=== PATIENT | female | born 1985 | race Caucasian/White ===

== ENCOUNTER 2020-12-06 13:25 | Emergency (ER) | payer OTHER, SELFPAY ==
--- NOTE | ~2020-12-06 | XR_ITS ---
EXAMINATION: XR shoulder RT min 2V DATE: 12/06/2020 14:03 INDICATION: Right shoulder injury. TECHNIQUE: 4 views of right shoulder were obtained. COMPARISON: None. FINDINGS: Bone alignment is normal. No fracture. Glenohumeral joint is normal. There is mild acromioc lavicular joint osteoarthritis. There is mild scarring at right lung apex. IMPRESSION: 1. Mild acromioclavicular joint osteoarthritis. Reviewed, dictated and finalized at location A.
--- NOTE | ~2020-12-06 | CT_ITS ---
EXAMINATION: CT brain wo con INDICATION: Head injury COMPARISON: None TECHNIQUE: Standard unenhanced head CT. The dose-length product (DLP) was 605.33 mGy-cm. The mA was a djusted according to patient size. Iterative reconstruction technique was employed. FINDINGS: There is no intracranial hemorrhage, acute infarction, or abnormal mass lesion. The ventric les are normal. There is no abnormal mass effect or midline shift. The forbes-white matter differentiat ion is normal. The basal cisterns are patent. The orbits are normal. The paranasal sinuses, mastoids and calvarium are normal. IMPRESSION: 1. No acute intracranial abnormality. Reviewed, dictated and finalized at location A.
[2020-12-06 13:30] VITALS: BP 125/99; PULSE 117; RESP 18; TEMP 36.9; O2SAT 100
[2020-12-06 17:08] VITALS: BP 121/66; PULSE 71; RESP 16; O2SAT 97
--- NOTE | 2020-12-06 17:11 | ED.GENADULT ---
HPI - General Adult General Chief complaint: Fall Stated complaint: fell down stairs, head, shoulder, collar bone pain Time Seen by Provider: 12/06/20 14:41 Source: patient Mode of arrival: ambulatory Limitations: no limitations History of Present Illness HPI narrative: Patient presents with chief complaint of hand pain, right shoulder pain and right clavicle pain that began last night after she fell down some steps. Patient denies loss of consciousness. She denies change in vision, hearing, nausea, vomiting, neurological deficits. Patient reports swelling and bruising to her head and shoulder. She reports tenderness to these areas. Patient denies any bleeding from her orifices. Patient denies any other injuries or symptoms. Related Data Allergies Allergy/AdvReac Type Severity Reaction Status Date / Time Penicillins AdvReac Rash Verified 12/06/20 14:53 Review of Systems Review of Systems: Narrative: CONSTITUTIONAL: Denies fever, chills, or sweats. EYES: Denies visual changes, redness, or discharge. ENT: Denies rhinorrhea, congestion, sore throat, or otalgia. CARDIOVASCULAR: Denies chest pain, palpitations, or edema. RESPIRATORY: Denies cough or dyspnea. GASTROINTESTINAL: Denies abdominal pain, nausea, vomiting, or diarrhea. GENITOURINARY: Denies dysuria or hematuria. SKIN: Denies rash or itching. MUSCULOSKELETAL: Reports right shoulder and clavicle pain denies back pain, joint pain, or myalgia. NEUROLOGIC: Reports headache, denies numbness, dizziness, or weakness. PSYCHIATRIC: Denies anxiety or depression. Exam Narrative: Exam Narrative: GENERAL: Well-appearing, well-nourished, and in no acute distress. HEAD: Swelling and tenderness to right side of head to posterior EYES: PERRLA and EOMI. ENT: Nares clear, no rhinorrhea or epistaxis. Mucous membranes moist. Oropharynx without tonsillar hypertrophy exudate or other lesions. Bilateral TMs pearly forbes nonbulging. No hemotympanum NECK: Supple. No adenopathy or masses. Range of motion intact CHEST: Clear to auscultation. No respiratory distress. No wheezes rales or rhonchi HEART: Regular rate and rhythm. No murmur heard. Normal peripheral pulses. ABDOMEN: Soft, nontender, nondistended, normal active bowel sounds. EXTREMITIES: Tenderness with palpation of right shoulder and clavicle diffusely. There is ecchymosis noted. Normal range of motion. No edema. SKIN: Warm, dry, no rash. NEURO: No focal deficits. Alert and oriented x3. PSYCH: Normal mood and affect. Course Vital Signs Vital signs: Vital Signs Temperature 98.4 F 12/06/20 13:30 Pulse Rate 117 H 12/06/20 13:30 Respiratory Rate 18 12/06/20 13:30 Blood Pressure 125/99 H 12/06/20 13:30 Pulse Oximetry 100 12/06/20 13:30 Temperature 98.4 F 12/06/20 13:30 Pulse Rate 71 12/06/20 17:08 Respiratory Rate 16 12/06/20 17:08 Blood Pressure 121/66 12/06/20 17:08 Pulse Oximetry 97 12/06/20 17:08 Medical Decision Making MDM Narrative Medical decision making narrative: Patient informed about imaging results. Patient informed about head precautions and contusion instructions. Vital Signs Vital Signs: Vital Signs Temperature 98.4 F 12/06/20 13:30 Pulse Rate 117 H 12/06/20 13:30 Respiratory Rate 18 12/06/20 13:30 Blood Pressure 125/99 H 12/06/20 13:30 Pulse Oximetry 100 12/06/20 13:30 Temperature 98.4 F 12/06/20 13:30 Pulse Rate 71 12/06/20 17:08 Respiratory Rate 16 12/06/20 17:08 Blood Pressure 121/66 12/06/20 17:08 Pulse Oximetry 97 12/06/20 17:08 Imaging Data Radiologist's impression: ITS Impressions Shoulder X-Ray 12/06/20 14:05 IMPRESSION: 1. Mild acromioclavicular joint osteoarthritis. Head CT 12/06/20 16:08 IMPRESSION: 1. No acute intracranial abnormality. Discharge Plan Discharge Clinical Impression: Contusion of right shoulder Qualifiers: Encounter type: initial encounter Qualified Code(s): S40.011A - Co
== END 2020-12-06 17:10 | disposition home or self-care (01) ==
PROVIDERS: Emergency Provider Emergency Medicine
DX: S40.011A Contusion of right shoulder, initial encounter (principal); S09.90XA Unspecified injury of head, initial encounter; W10.9XXA Fall (on) (from) unspecified stairs and steps, initial encounter
CPT/HCPCS: 70450; 73030; 99284

== ENCOUNTER 2024-01-01 09:58 | Inpatient (IN) | payer OTHER, SELFPAY ==
[2024-01-01] VITALS (7 sets, daily range): BP systolic 135–151; BP diastolic 88–98; PULSE 51–92; RESP 16–18; TEMP 35.7–36.8; O2SAT 100; BMI 35.2
--- NOTE | 2024-01-01 | ECHO_ITS ---
Patient Info Name: Diane Huynh Age: 38 years : 1985 Gender: Female Ht: 66 in Wt: 220 lbs BSA: 2.20 m2 HR: 55 bpm Heart Rhythm: Sinus Rhythm Technical Quality: Good Exam Date: 01/01/2024 4:07 PM Exam Location: Echo Lab Patient Status: Outpatient Admit Date: 01/01/2024 Staff Ordering Physician: Bailey Herr MD Curatorial Assistant: Shania Chavarria RDCS Attending Provider: Milagros Collier MD Referring Physician: Nemesio HANSEN; Exam Type: CA echo doppler color flow Study Info Indications - new onset heart failure Complete two-dimensional, color flow and Doppler transthoracic echocardiogram is performed. Summary 1. Left ventricular chamber dimension is normal. 2. Left ventricular systolic function is normal, estimated at 60-65%. 3. The left ventricular diastolic function is grade III diastolic dysfunction. 4. Right ventricular systolic function is normal. 5. No significant valvular disease. Left Ventricle Left ventricular chamber dimension is normal. Left ventricular systolic function is normal, estimated at 60-65%. There is no increased left ventricular wall thickness. The left ventricular diastolic function is grade III diastolic dysfunction. Right Ventricle Right ventricular chamber dimension is normal. Right ventricular systolic function is normal. Left Atria Left atrial chamber dimension is normal. Right Atria Right atrial chamber dimension is normal. Atrial Septum Intact interatrial septum visualized by color flow imaging. Aortic Valve The aortic valve is not well visualized. There is no aortic valve stenosis. There is no aortic valve regurgitation. Pulmonic Valve The pulmonic valve is not well visualized. Mitral Valve There is trace mitral valve regurgitation. Tricuspid Valve There is trace tricuspid valve regurgitation. Pericardium/Pleural There is no pericardial effusion. Inferior Vena Cava Dilated inferior vena cava with >50% collapse upon inspiration consistent with elevated right atrial pressure, 8 mmHg. Aorta The aortic root size at the sinus of Valsalva is normal. Left Ventricular Outflow Tract Name Value Normal LVOT 2D LVOT Diameter 1.8 cm LVOT Doppler LVOT Peak Gradient 5 mmHg LVOT Mean Gradient 3 mmHg LVOT VTI 32 cm LVOT VTI/AV VTI Ratio 0.8 LVOT Stroke Volume 80 ml LVOT CO 3.8 l/min LVOT CI 1.7 l/min/m2 Pulmonic Valve Name Value Normal RVOT Doppler RVOT Peak Gradient 4 mmHg PV Doppler PV Peak Gradient 6 mmHg Mitral Valve Name Value Normal
--- NOTE | ~2024-01-01 | CT_ITS ---
EXAMINATION: CTA chest PE protocol DATE: 01/01/2024 13:59 INDICATION: Shortness of breath. TECHNIQUE: Computed tomography angiography (CTA) of the chest was performed with 100 mL Omnipaque-350 intravenous contrast timed to evaluate the pulmonary arteries. Coronal maximum intensity projection 3D-reconstructions were created by the technologist. Automated exposure control and iterative reconst ruction technique were employed. The dose-length product was 357.16 mGy-cm. COMPARISON: None. FINDINGS: There is mild scarring at the lung apices. There is smooth septal thickening in the inferio r lungs, consistent mild pulmonary edema. There are small pleural effusions. The heart size is normal . There is no pulmonary embolus. There is a small sliding hiatal hernia. There is mild thoracic spond ylosis. IMPRESSION: 1. No pulmonary embolus. 2. Mild pulmonary edema. 3. Small pleural effusions. Reviewed, dictated and finalized at location A.
--- NOTE | ~2024-01-01 | XR_ITS ---
Portable chest x-ray Comparison: 01/01/2024 Clinical History: Chest pain Findings: Lungs are clear, without focal consolidation or pleural effusion. Cardiomediastinal silho uette is stable. Bones and soft tissues are unremarkable. Impression: Normal chest. Reviewed, dictated and finalized at [facility]. Impression: Normal chest.
--- NOTE | ~2024-01-01 | XR_ITS ---
EXAMINATION: XR chest 2V DATE: 01/01/2024 12:05 INDICATION: Bilateral leg swelling. TECHNIQUE: Frontal and lateral views of the chest were obtained. COMPARISON: None. FINDINGS: There is mild scarring at the lung apices. No pleural effusion or pneumothorax. The heart s ize is normal. IMPRESSION: 1. Mild scarring at the lung apices. Reviewed, dictated and finalized at location A.
--- NOTE | ~2024-01-01 | US_ITS ---
EXAMINATION: US venous doppler [facility] DATE: 01/02/2024 09:15 INDICATION: Lower limb swelling. TECHNIQUE: Grayscale ultrasound images without and with compression and Doppler ultrasound images of the bilateral lower extremity veins were obtained. COMPARISON: None. FINDINGS: The visualized portions of right common femoral vein, profunda (deep) femoral vein, femoral vein, pop liteal vein, peroneal veins, posterior tibial veins, and greater saphenous vein outflow are patent. The visualized portions of left common femoral vein, profunda femoral vein, femoral vein, popliteal v ein, peroneal veins, posterior tibial veins, and greater saphenous vein outflow are patent. IMPRESSION: 1. No deep venous thrombosis. Reviewed, dictated and finalized at location A.
--- NOTE | 2024-01-01 11:40 | ED.EXTPRO ---
HPI - Extremity Problem General Chief complaint: Extremity Problem,Nontraumatic Stated complaint: bilateral lower extremity swelling Time Seen by Provider: 01/01/24 11:06 Source: patient Mode of arrival: ambulatory Limitations: no limitations History of Present Illness HPI Narrative: Patient presetns with bilateral lower extremity pain and swelling. No trauma. She first noticed this . Has not happened before. She also reports shortenss of breath and felt panicked earlier, feeling like her lungs were going to collapse. She initially thought it was a panick attack but has not had the other physical signs before. PCP Niall Bowles [employer] Related Data Home Medications Medication Instructions Recorded Confirmed ergocalciferol (vitamin D2) 1,250 1,250 mcg PO WEEKLY 01/01/24 01/01/24 mcg (50,000 unit) capsule ibuprofen 600 mg tablet 600 mg PO BID 01/01/24 01/01/24 omeprazole 40 mg capsule,delayed 40 mg PO DAILY 01/01/24 01/01/24 release Allergies Allergy/AdvReac Type Severity Reaction Status Date / Time Penicillins AdvReac Rash Verified 01/01/24 17:46 ON LICENSE OF [facility] Past Medical History Medical History Obstructive sleep apnea Surgical History Surgical History History of tonsillectomy Family History Family History Mother CHF (congestive heart failure) Hypothyroidism Renal failure Sibling CHF (congestive heart failure) Father Diabetes mellitus Social History Social History Social History: Surrogate medical decision maker: Leo Huynh, spouse. Code status: Full code. Smoking packs per day: 0.15 Smoking cigarettes per day: 3.0 Years smoked: 6 Smoking pack-years: 0.90 Smoking status: Former smoker Tobacco type: cigarettes and e-cigarettes/vaping Smoking end date: 09/12/21 Alcohol intake: current Drinks per week: 2 Substance use: never Do You Feel Safe in your Home?: Yes Lack of Transportation: No Lack of Food: Never True Current Housing: I Have Housing Concerned About Future Housing: Decline to Answer Difficulty Paying Gas/Electric Bills: Decline to Answer Difficulty Paying for Meds: Decline to Answer Currently Unemployed: Decline to Answer Education: High School Diploma/GED Difficulty w/ Childcare or Family Care: No Additional living arrangements comments: Lives with and son and daughter in [place]. Additional occupation/education comments: Homemaker. Spiritual care concerns: No Exam Narrative: GENERAL: Well-appearing, well-nourished, and in no acute distress. HEAD: Normocephalic, atraumatic. EYES: Non injected, non icteric ENT: Nares clear, no rhinorrhea or epistaxis. NECK: Supple. CHEST: Speaking in full sentences. No respiratory distress. HEART: Regular rate and rhythm. . ABDOMEN: Soft, nondistended. EXTREMITIES: Normal range of motion. 2+ pitting pedal edema. 1+ at tibia bilaterally. SKIN: Warm, dry, no rash. NEURO: No focal deficits. Alert and oriented x3. PSYCH: Intermittently tearful/anxious but calms appropriately. Course Vital Signs Vital signs: Vital Signs Temperature 97.6 F 01/01/24 10:21 Pulse Rate 92 01/01/24 10:21 Respiratory Rate 16 01/01/24 10:21 Blood Pressure 140/89 01/01/24 10:21 Pulse Oximetry 100 01/01/24 10:21 Oxygen Delivery Room Air 01/01/24 10:21 Temperature 96.7 F L 01/04/24 05:15 Pulse Rate 76 01/04/24 12:00 Respiratory Rate 20 01/04/24 05:15 Blood Pressure 119/72 01/04/24 14:24 Pulse Oximetry 99 01/04/24 05:15 Oxygen Delivery Room Air 01/04/24 08:50 MDM - Extremity (Nontraumatic) MDM Narrative Medical decision making narrative: Patient presents with bilateral lower extremity pitting edema. In the ED she is afebrile with VS w
--- NOTE | 2024-01-01 11:42 | ECG_ITS ---
SEE SCANNED COPY FOR CONFIRMED REPORT. MTDD
[2024-01-01 12:09] LABS: Basophils Absolute Auto 0.1 K/mm3 (0.0-0.1); Basophils Percent Auto 1.5 % (0.2-1.2); Eosinophils Absolute Auto 0.1 K/mm3 (0-0.3); Eosinophils Percent Auto 2.4 % (0-4.4); Hemoglobin 10.4 g/dL (12.0-15.0); Immature Granulocyte Absolute 0.01 K/mm3 (0.00-0.031); Immature Granulocyte Percent A 0.2 % (0-0.5); Lymphocytes Absolute Auto 1.95 K/mm3 (0.9-3.2); Lymphocytes Percent Auto 33.6 % (18.3-44.2); Mean Corpuscular HGB Conc 32.5 g/dl (32-36); Mean Corpuscular Hemoglobin 28.2 pg (26-34); Mean Corpuscular Volume 86.7 fl (80-100); Mean Platelet Volume 9.7 fl (7.4-10.4); Monocytes Absolute Auto 0.5 K/mm3 (0.1-0.6); Monocytes Percent Auto 8.8 % (2.6-8.5); Neutrophils Absolute Auto 3.1 K/mm3 (1.3-6.7); Neutrophils Percent Auto 53.5 % (45.5-73.1); Platelet Count Result 270 k/mm3 (150-375); Red Blood Count 3.69 M/mm3 (4.2-5.4); Red Cell Distribution Width 14.1 % (11.5-14.5); White Blood Count 5.8 K/mm3 (4.5-10.0)
[2024-01-01 12:24] LABS: Alanine Aminotransferase 57 U/L (6-35); Albumin Level 3.6 g/dL (3.5-5.1); Alkaline Phosphatase 67 U/L (38-126); Anion Gap 1 mmol/L (4-12); Aspartate Amino Transferase 51 U/L (14-36); Bilirubin,Total 0.6 mg/dL (0.2-1.3); Blood Urea Nitrogen 12 mg/dL (7-17); Calcium 8.6 mg/dL (8.4-10.2); Carbon Dioxide 28 mmol/L (22-30); Chloride 108 mmol/L (98-107); Estimated CRCL calculation 81 ml/min; Estimated Glomerular Filt Rate > 60; Glucose 94 mg/dL (65-110); Magnesium 1.9 mg/dL (1.6-2.3); Potassium 3.6 mmol/L (3.4-5.0); Sodium 137 mmol/L (137-145)
[2024-01-01 12:33] LABS: Creatine Kinase 50 U/L (30-135)
[2024-01-01 12:34] LABS: NT Pro B Type Natriuretic Pept 1250 pg/mL (19.9-100); Troponin I < 0.012 ng/mL (0.000-0.034)
[2024-01-01 13:23] LABS: Prothrombin Time 13.8 Seconds (11.1-14.7)
[2024-01-01 13:24] LABS: Partial Thromboplastin Time 26.6 Seconds (22.3-36.8)
[2024-01-01 13:28] LABS: D Dimer 0.73 ug/mL (<0.48)
[2024-01-01] MEDS: FUROSEMIDE INJ 40 MG/4 ML VIAL 20 MG IV PUSH (15:00)
--- NOTE | 2024-01-01 15:30 | PC.NURSE ---
This patient, Diane Huynh, was admitted to [facility] Surg Room 315-01. Patient/family oriented to hospital policies and general routines including ID bracelet, bed and alarms, visiting hours, pain management, procedures, bathroom and other care routines, personal items, smoking policy, room service/diet, and visiting hours. Information on how to activate the Rapid Response Team has been discussed. Patient/Family are encouraged to report perceived risks to care and to ask questions if they do not understand what they are told or what they should do.
--- NOTE | 2024-01-01 19:44 | PM.IMHP ---
H&P: HPI History of Present Illness Date/Time: 01/01/24 18:15 Chief Complaint: Leg swelling. Narrative: This is a previously healthy 38-year-old female who was recently diagnosed with sleep apnea though she has yet to receive her CPAP machine who presented to the emergency department for evaluation of swelling in her legs and mild shortness of breath. The patient provides the following history. Several weeks ago she and her son had a presumed viral infection with symptoms to include fevers, body aches, vomiting, and generalized malaise. She was sick for 6 days in approximately 1 week thereafter she started to develop swelling in her legs. She is also getting winded when going up a flight of stairs which has never happened before. She has elevated her leg and that does not seem to help with the swelling. She denies syncope, near syncope, chest and pleuritic pain, palpitations, sensations of racing heart, nausea, vomiting, and calf pain. She denies recent travel. She has never had similar symptoms. In the ED: She was afebrile on arrival with a blood pressure of 140/89. SpO2 has been in the upper 90s to 100% on room air. Labs were significant for WBC count of 5.8, hemoglobin 10.4, D-dimer 0.73, AST 51, ALT 57, proBNP 1250, troponin less than 0.012, CK 50. EKG showed sinus bradycardia with no acute ST segment changes. Chest x-ray showed mild scarring at the lung apices. Chest CTA was negative for pulmonary embolus but did show mild pulmonary edema and small pleural effusions. She received 20 mg IV furosemide she is being admitted in this setting for further treatment evaluation. Review of Systems Review of Systems: 12 systems were reviewed and are negative except for as per HPI. [facility] Past Medical History Medical History (Updated 01/01/24 @ 22:03 by Meme Bullock PA-C) Obstructive sleep apnea Surgical History Surgical History (Updated 01/01/24 @ 21:59 by Meme Bullock PA-C) History of tonsillectomy Family History Family History Mother CHF (congestive heart failure) Hypothyroidism Renal failure Sibling CHF (congestive heart failure) Father Diabetes mellitus Social History Social History (Updated 01/01/24 @ 22:00 by Meme Bullock PA-C) Social History: Surrogate medical decision maker: Leo Huynh, spouse. Code status: Full code. Smoking packs per day: 0.15 Smoking cigarettes per day: 3.0 Years smoked: 6 Smoking pack-years: 0.90 Smoking status: Former smoker Tobacco type: cigarettes and e-cigarettes/vaping Smoking end date: 09/12/21 Alcohol intake: current Drinks per week: 2 Substance use: never Do You Feel Safe in your Home?: Yes Lack of Transportation: No Lack of Food: Never True Current Housing: I Have Housing Concerned About Future Housing: Decline to Answer Difficulty Paying Gas/Electric Bills: Decline to Answer Difficulty Paying for Meds: Decline to Answer Currently Unemployed: Decline to Answer Education: High School Diploma/GED Difficulty w/ Childcare or Family Care: No Additional living arrangements comments: Lives with and son and daughter in [place]. Additional occupation/education comments: Homemaker. Spiritual care concerns: No Meds Home Medications and Allergies Home Medications Medication Instructions Recorded Confirmed Type ergocalciferol (vitamin D2) 1,250 1,250 mcg PO WEEKLY 01/01/24 01/01/24 History mcg (50,000 unit) capsule ibuprofen 600 mg tablet 600 mg PO BID 01/01/24 01/01/24 History omeprazole 40 mg capsule,delayed 40 mg PO DAILY 01/01/24 01/01/24 History release Allergies Allergy/AdvReac Type Severity Reaction Status Date / Time Penicillins AdvReac Rash Verified 01/01/24 17:46 Vital Signs Vital Signs - 24 hr 01/01/24 10:21 01/01/24 13:02 01/01/24 15:02 Temperature 97.6 F 97.9 F Pulse Rate 92 51 L 81 Respiratory
[2024-01-01] MEDS: ACETAMINOPHEN 325 MG TABLET 650 MG PO (20:06)
[2024-01-01 22:31] LABS: Iron 48 ug/dL (37-170)
[2024-01-01 22:40] LABS: Percent Iron Saturation 14 % (20-50)
[2024-01-01 23:39] LABS: Folic Acid 6.7 ng/mL (2.76->20)
[2024-01-02] VITALS (9 sets, daily range): BP systolic 132–162; BP diastolic 77–93; PULSE 59–105; RESP 18–20; TEMP 35.7–36.2; O2SAT 100
--- NOTE | 2024-01-02 02:46 | PCRCNOTE ---
PT DID NOT WANT TO WEAR THE HOSPITAL'S BIPAP MACHINE. MACHINE IS NOT IN ROOM.
[2024-01-02 05:41] LABS: Hematocrit 31.2 % (37.0-47.0); Hemoglobin 10.2 g/dL (12.0-15.0); Mean Corpuscular HGB Conc 32.7 g/dl (32-36); Mean Corpuscular Hemoglobin 28.3 pg (26-34); Mean Corpuscular Volume 86.4 fl (80-100); Mean Platelet Volume 9.6 fl (7.4-10.4); Platelet Count Result 217 k/mm3 (150-375); Red Blood Count 3.61 M/mm3 (4.2-5.4); Red Cell Distribution Width 14.1 % (11.5-14.5); White Blood Count 4.3 K/mm3 (4.5-10.0)
[2024-01-02 05:50] LABS: Alanine Aminotransferase 60 U/L (6-35); Albumin Level 3.3 g/dL (3.5-5.1); Alkaline Phosphatase 62 U/L (38-126); Anion Gap 5 mmol/L (4-12); Aspartate Amino Transferase 52 U/L (14-36); Bilirubin,Total 0.7 mg/dL (0.2-1.3); Blood Urea Nitrogen 10 mg/dL (7-17); Calcium 8.7 mg/dL (8.4-10.2); Carbon Dioxide 26 mmol/L (22-30); Chloride 108 mmol/L (98-107); Estimated CRCL calculation 82 ml/min; Estimated Glomerular Filt Rate > 60; Glucose 97 mg/dL (65-110); Magnesium 1.9 mg/dL (1.6-2.3); Potassium 3.5 mmol/L (3.4-5.0); Sodium 139 mmol/L (137-145)
[2024-01-02] MEDS: FUROSEMIDE INJ 40 MG/4 ML VIAL 20 MG IV PUSH ×2 (08:03→16:48)
[2024-01-02] MEDS: PANTOPRAZOLE 40 MG TABLET PO ×2 (08:03→16:48)
[2024-01-02] MEDS: ENOXAPARIN 40 MG/0.4 ML SYRINGE SUB-Q (08:05)
--- NOTE | 2024-01-02 08:07 | PM.IMPN ---
Progress Note: A&P Assessment and Plan (1) Hypervolemia: Code(s): E87.70 - Fluid overload, unspecified Status: Acute Assessment and Plan: Etiology is not unclear. She has pulmonary edema, small pleural effusions, and elevated proBNP which is concerning for possible heart failure however cardiac silhouette was normal on imaging today and her cardiac exam does not suggest obvious pathology. Symptoms: leg swelling and mild shortness of breath Chest CTA: Mild pulmonary edema, small pleural effusions. No pulmonary embolus. BNP 1250 Echo with LVEF 60-65% with grade III diastolic dysfunction Diuresis with close monitoring of volume status, renal function, and electrolytes. Evaluated by cardiology who plan to switch to PO lasix in the am and start jardiance 10 mg daily. (2) Transaminasemia: Code(s): R74.01 - Elevation of levels of liver transaminase levels Status: Acute Assessment and Plan: AST and ALT are mildly elevated. - Continue to monitor - Hepatic panel ordered (3) Normocytic anemia: Code(s): D64.9 - Anemia, unspecified Status: Acute Assessment and Plan: Iron studies and B12 and folates WNL. No signs of active bleeding. - Continue to monitor (4) Obstructive sleep apnea: Code(s): G47.33 - Obstructive sleep apnea (adult) (pediatric) Status: Acute Assessment and Plan: Untreated sleep apnea and has yet to received her home machine. CPAP ordered for tonight with auto titration. Time Spent With Patient Time with patient: 25 - 35 minutes Subjective Date/time seen: 01/02/24 08:07 Interval history: 38-year-old female who was recently diagnosed with sleep apnea though she has yet to receive her CPAP machine who presented to the emergency department for evaluation of swelling in her legs and mild shortness of breath.? Patient is lying in bed comfortably with friend at bedside and on the phone. Per patient okay to discuss treatment plan with family and friends. Echo revealed an LVEF 60-65% with grade III diastolic dysfunction. Patient was evaluated by cardiology who plan to finish the IV lasix today and start PO lasix in the morning. Patient will also be started on Jardiance 10 mg once daily. Discussed diastolic dysfunction and new medications with patient and she states understanding. Per patient the lower extremity edema has significantly improved. She denies chest pain or shortness of breath at this time. Review of Systems Review of Systems: All systems reviewed & are unremarkable except as noted in HPI and below Exam Narrative: AF HR 97 RR 20 SpO2 100 BP 132/77 General: well nourished, well-developed female in no acute respiratory distress who is nontoxic appearing, lying semi recumbent in bed. HEENT: Normocephalic. Atraumatic. Pupils equal round reactive to light. Extraocular movement intact. Sclera clear and anicteric. No facial asymmetry. Chest: Lungs are clear to auscultation bilaterally. No wheezes or crackles. CV: Heart was regular rate and rhythm. S1-S2. No murmurs, gallops, or rubs. Abd: Abdomen was soft. Nontender. Nondistended. Positive bowel sounds. No organomegaly or masses. Ext: No clubbing, cyanosis. 2+ DP pulses bilaterally. trivial lower extremity edema. Neuro: Patient is alert and oriented x4. Speech is clear. Psych: Normal mood and affect. Patient is pleasant and cooperative. Skin: Warm and dry. No rashes noted. Objective Data Vital Signs Vital Signs: Vital Signs - 24 hr 01/01/24 10:21 01/01/24 13:02 01/01/24 15:02 Temperature 97.6 F 97.9 F Pulse Rate 92 51 L 81 Respiratory Rate 16 18 18 Blood Pressure 140/89 151/94 H 146/98 H Pulse Oximetry 100 100 100 Oxygen Delivery Room Air 01/01/24 16:30 01/01/24 16:30 01/01/24 16:40 Temperature 98.2 F Pulse Rate 62 63 Respiratory Rate 16 Blood Pressure 135/88 Pulse Oximetry 100 Oxygen Delivery Room Air 01/01/24 20:20 01/01/24 20:00 05
[2024-01-02] MEDS: IBUPROFEN 600 MG TABLET PO ×2 (08:41→16:48)
--- NOTE | 2024-01-02 11:40 | PM.CNCAR ---
Assessment and Plan Assessment and plan (1) Acute diastolic heart failure: Code(s): I50.31 - Acute diastolic (congestive) heart failure Status: Acute Assessment and Plan: Echocardiogram shows LVEF 60-65%, grade III diastolic dysfunction, no significant valvular disease. Will finish off IV Lasix today and start PO Lasix tomorrow. Start Jardiance 10mg once daily. Will arrange for close outpatient follow up in our clinic. (2) Obstructive sleep apnea: Code(s): G47.33 - Obstructive sleep apnea (adult) (pediatric) Status: Acute Assessment and Plan: Will be getting her CPAP machine soon. History of Present Illness History of Present Illness Consult date/time: 01/02/24 11:40 Requesting physician: Bailey Herr MD Consult reason: congestive heart failure Reason For Visit: new onset heart failure Narrative: We are consulted for congestive heart failure. This is a 38 year old female with recent diagnosis of sleep apnea who presented for evaluation of progressively worsening bilateral lower extremity edema that started on . Patient had a viral illness about 2 weeks ago and recovered fully from that. She started getting lower extremity edema on that continued to worsen. No chest pain or shortness of breath. ER workup showed NT pro BNP of 1250. Troponin negative. TSH level is normal. Chest CTA with mild pulmonary edema and small pleural effusions. Venous duplex negative for DVT. EKG with sinus bradycardia. She was admitted for congestive heart failure and started on IV Lasix with significant improvement in lower extremity edema. She reports that her brother and mother both had heart failure. Brother was diagnosed in his late 30s. Mother was diagnosed in her 40s. Review of Systems Review of Systems: All systems reviewed & are unremarkable except as noted in HPI and below (HPI) [facility] Past Medical History Medical History Obstructive sleep apnea Surgical History Surgical History History of tonsillectomy Family History Family History Mother CHF (congestive heart failure) Hypothyroidism Renal failure Sibling CHF (congestive heart failure) Father Diabetes mellitus Social History Social History Social History: Surrogate medical decision maker: Leo Huynh, spouse. Code status: Full code. Smoking packs per day: 0.15 Smoking cigarettes per day: 3.0 Years smoked: 6 Smoking pack-years: 0.90 Smoking status: Former smoker Tobacco type: cigarettes and e-cigarettes/vaping Smoking end date: 09/12/21 Alcohol intake: current Drinks per week: 2 Substance use: never Do You Feel Safe in your Home?: Yes Lack of Transportation: No Lack of Food: Never True Current Housing: I Have Housing Concerned About Future Housing: Decline to Answer Difficulty Paying Gas/Electric Bills: Decline to Answer Difficulty Paying for Meds: Decline to Answer Currently Unemployed: Decline to Answer Education: High School Diploma/GED Difficulty w/ Childcare or Family Care: No Additional living arrangements comments: Lives with and son and daughter in [place]. Additional occupation/education comments: Homemaker. Spiritual care concerns: No Meds Home Medications and Allergies Home Medications Medication Instructions Recorded Confirmed Type ergocalciferol (vitamin D2) 1,250 1,250 mcg PO WEEKLY 01/01/24 01/01/24 History mcg (50,000 unit) capsule ibuprofen 600 mg tablet 600 mg PO BID 01/01/24 01/01/24 History omeprazole 40 mg capsule,delayed 40 mg PO DAILY 01/01/24 01/01/24 History release Allergies Allergy/AdvReac Type Severity Reaction Status Date / Time Penicillins AdvReac Rash Verified 01/01/24 17:46 Vital S
[2024-01-02] MEDS: EMPAGLIFLOZIN 10 MG TABLET PO (12:09)
[2024-01-02 16:16] LABS: Lipase 178 U/L (23-300)
[2024-01-02 17:02] LABS: Hepatitis B Surface Antigen Negative (Negative)
[2024-01-02 17:08] LABS: HAV RESULT Negative (Negative); Hepatitis B Core IgM Result Negative (Negative)
[2024-01-02 17:19] LABS: Hepatitis C Virus Antibody Negative (Negative)
[2024-01-03] VITALS (13 sets, daily range): BP systolic 128–145; BP diastolic 80–95; PULSE 56–80; RESP 20; TEMP 35.8–36.5; O2SAT 97–100
--- NOTE | 2024-01-03 05:40 | ECG_ITS ---
SEE SCANNED COPY FOR CONFIRMED REPORT. MTDD
[2024-01-03 05:46] LABS: Basophils Absolute Auto 0.1 K/mm3 (0.0-0.1); Basophils Percent Auto 1.2 % (0.2-1.2); Eosinophils Absolute Auto 0.2 K/mm3 (0-0.3); Eosinophils Percent Auto 3.5 % (0-4.4); Hematocrit 33.6 % (37.0-47.0); Hemoglobin 10.8 g/dL (12.0-15.0); Immature Granulocyte Absolute 0.01 K/mm3 (0.00-0.031); Immature Granulocyte Percent A 0.2 % (0-0.5); Lymphocytes Absolute Auto 1.59 K/mm3 (0.9-3.2); Lymphocytes Percent Auto 32.9 % (18.3-44.2); Mean Corpuscular HGB Conc 32.1 g/dl (32-36); Mean Corpuscular Hemoglobin 27.8 pg (26-34); Mean Corpuscular Volume 86.4 fl (80-100); Mean Platelet Volume 9.9 fl (7.4-10.4); Monocytes Absolute Auto 0.4 K/mm3 (0.1-0.6); Monocytes Percent Auto 8.1 % (2.6-8.5); Neutrophils Absolute Auto 2.6 K/mm3 (1.3-6.7); Neutrophils Percent Auto 54.1 % (45.5-73.1); Platelet Count Result 254 k/mm3 (150-375); Red Blood Count 3.89 M/mm3 (4.2-5.4); Red Cell Distribution Width 14.2 % (11.5-14.5); White Blood Count 4.8 K/mm3 (4.5-10.0)
[2024-01-03 05:57] LABS: Phosphorus 4.9 mg/dL (2.5-4.5)
[2024-01-03 06:25] LABS: Troponin I < 0.012 ng/mL (0.000-0.034)
[2024-01-03] MEDS: ONDANSETRON INJ 4 MG/2 ML VIAL IV PUSH (07:30)
[2024-01-03 07:38] LABS: Alanine Aminotransferase 52 U/L (6-35); Albumin Level 3.5 g/dL (3.5-5.1); Alkaline Phosphatase 65 U/L (38-126); Anion Gap 6 mmol/L (4-12); Aspartate Amino Transferase 42 U/L (14-36); Bilirubin,Total 0.6 mg/dL (0.2-1.3); Blood Urea Nitrogen 11 mg/dL (7-17); Calcium 8.7 mg/dL (8.4-10.2); Carbon Dioxide 27 mmol/L (22-30); Chloride 106 mmol/L (98-107); Estimated CRCL calculation 64 ml/min; Estimated Glomerular Filt Rate 46; Glucose 102 mg/dL (65-110); Potassium 3.4 mmol/L (3.4-5.0); Sodium 139 mmol/L (137-145)
[2024-01-03 08:01] LABS: Glucose Point of Care 101 mg/dl (65-105)
[2024-01-03] MEDS: ENOXAPARIN 40 MG/0.4 ML SYRINGE SUB-Q (09:44)
[2024-01-03] MEDS: EMPAGLIFLOZIN 10 MG TABLET PO (09:44)
[2024-01-03] MEDS: FUROSEMIDE 40 MG TABLET PO (09:44)
[2024-01-03] MEDS: PANTOPRAZOLE 40 MG TABLET PO ×2 (09:44→17:38)
[2024-01-03] MEDS: IBUPROFEN 600 MG TABLET PO ×2 (09:44→17:38)
--- NOTE | 2024-01-03 10:26 | ECG_ITS ---
SEE SCANNED COPY FOR CONFIRMED REPORT. MTDD
--- NOTE | 2024-01-03 10:55 | PM.PNCARD ---
Progress Note: A&P Assessment and Plan (1) Acute diastolic heart failure: Code(s): I50.31 - Acute diastolic (congestive) heart failure Status: Acute Assessment and Plan: Echocardiogram shows LVEF 60-65%, grade III diastolic dysfunction, no significant valvular disease. Stop Lasix due to JUDI, which is likely from overdiuresis. Monitor SCr levels. If her SCr improves tomorrow, would be okay for discharge from my standpoint. Will plan for Lasix PRN upon discharge. Started Jardiance 10mg once daily, continue. Will arrange for close outpatient follow up in our clinic. (2) JUDI (acute kidney injury): Code(s): N17.9 - Acute kidney failure, unspecified Status: Acute Assessment and Plan: SCr 1.3 today (was 1.0 yesterday). Likely from overdiuresis. Stop Lasix for now. Monitor SCr levels. If her SCr improves tomorrow, would be okay for discharge from my standpoint. Will plan for Lasix PRN upon discharge. (3) Obstructive sleep apnea: Code(s): G47.33 - Obstructive sleep apnea (adult) (pediatric) Status: Acute Assessment and Plan: Will be getting her CPAP machine soon. Subjective Date/time seen: 01/03/24 10:55 Interval history: Reason for visit: Acute diastolic heart failure HPI: We are consulted for congestive heart failure. This is a 38 year old female with recent diagnosis of sleep apnea who presented for evaluation of progressively worsening bilateral lower extremity edema that started on . Patient had a viral illness about 2 weeks ago and recovered fully from that. She started getting lower extremity edema on that continued to worsen. No chest pain or shortness of breath. ER workup showed NT pro BNP of 1250. Troponin negative. TSH level is normal. Chest CTA with mild pulmonary edema and small pleural effusions. Venous duplex negative for DVT. EKG with sinus bradycardia. She was admitted for congestive heart failure and started on IV Lasix with significant improvement in lower extremity edema. She reports that her brother and mother both had heart failure. Brother was diagnosed in his late 30s. Mother was diagnosed in her 40s. Date of service 01/02: This morning, patient reported sharp chest pain, with blurring of her vision, dizziness. EKG unchanged. Troponin negative. Orthostatic vital signs negative. Feeling better at the time of my evaluation, however, not back to normal. Review of Systems Review of Systems: All systems reviewed & are unremarkable except as noted in HPI and below (HPI) Exam Const: General: comfortable and no acute distress HENMT: Mouth: Yes moist mucous membranes Eyes: General: appearance normal, both eyes and all related structures Sclera: sclerae normal Neck: Neck: supple Resp: Effort & Inspection: normal respiratory effort Cardio: Rate: regular rate Rhythm: regular rhythm Skin: General skin exam: normal color Neuro: Speech: normal speech Psych: Mental Status: mental status grossly normal Affect: normal affect Objective Data Vital Signs Vital Signs: Vital Signs - 24 hr 01/02/24 13:53 01/02/24 12:00 01/02/24 16:00 Temperature 36.2 C L Pulse Rate 97 66 105 H Respiratory Rate 20 Blood Pressure 132/77 Pulse Oximetry 100 Oxygen Delivery 01/02/24 20:25 01/02/24 20:00 01/02/24 20:00 Temperature 35.9 C L Pulse Rate 74 86 Respiratory Rate 18 Blood Pressure 134/93 H Pulse Oximetry 100 Oxygen Delivery Room Air 01/03/24 00:00 01/03/24 04:00 01/03/24 05:35 Temperature 35.8 C L Pulse Rate 65 56 L 62 Respiratory Rate 20 Blood Pressure 134/82 Pulse Oximetry 97 Oxygen Delivery 01/03/24 08:15 01/03/24 08:59 01/03/24 09:16 Temperature 35.9 C L 36.3 C L Pulse Rate 73 65 Respiratory Rate 20 20 Blood Pressure 135/95 H 128/80 Pulse Oximetry 100 98 99 Oxygen Delivery Room Air 01/03/24 09:17 01/03/24 09:19 Temperature 36.3 C L 36.3 C L Pulse Rate 72 80 Respiratory Rat
[2024-01-03] MEDS: hydrOXYzine HCL 25 MG TABLET 50 MG PO (12:37)
--- NOTE | 2024-01-03 14:35 | PM.IMPN ---
Progress Note: A&P Assessment and Plan (1) Acute diastolic heart failure: Code(s): I50.31 - Acute diastolic (congestive) heart failure Status: Acute Assessment and Plan: She has pulmonary edema, small pleural effusions, and elevated proBNP which is concerning for possible heart failure however cardiac silhouette was normal on imaging today and her cardiac exam does not suggest obvious pathology. She reports that her brother and mother both had heart failure. Brother was diagnosed in his late 30s. Mother was diagnosed in her 40s. Symptoms: leg swelling and mild shortness of breath Chest CTA: Mild pulmonary edema, small pleural effusions. No pulmonary embolus. BNP 1250 Echo with LVEF 60-65% with grade III diastolic dysfunction Diuresis with lasix is being held due to current JUDI which is likely from over diuresis. Per cardiology if Cr improves patient would be clear to discharge with plan for lasix PRN. Patient remains on Jardiance 10 mg daily (2) Transaminasemia: Code(s): R74.01 - Elevation of levels of liver transaminase levels Status: Acute Assessment and Plan: AST and ALT are remain mildly elevated, but down trending. - Continue to monitor - Hepatic panel negative (3) Normocytic anemia: Code(s): D64.9 - Anemia, unspecified Status: Acute Assessment and Plan: Iron studies and B12 and folates WNL. No signs of active bleeding. - Continue to monitor (4) Obstructive sleep apnea: Code(s): G47.33 - Obstructive sleep apnea (adult) (pediatric) Status: Acute Assessment and Plan: Untreated sleep apnea and has yet to received her home machine. CPAP ordered for tonight with auto titration. (5) JUDI (acute kidney injury): Code(s): N17.9 - Acute kidney failure, unspecified Status: Acute Assessment and Plan: Creatinine elevated to 1.3 today from 1.0 yesterday. Likely due to over diuresis with lasix. Lasix currently being held for JUDI. Per cardiology if Creatinine improves would be okay to discharge home with PRN lasix. - Continue to monitor - avoid nephrotoxic medications Time Spent With Patient Time with patient: 25 - 35 minutes Subjective Date/time seen: 01/03/24 14:35 Interval history: 38-year-old female who was recently diagnosed with sleep apnea though she has yet to receive her CPAP machine who presented to the emergency department for evaluation of swelling in her legs and mild shortness of breath.? Patient is anxious and tearful lying in bed with family at bedside. She reports 2 episodes of chest tightness this morning with associated diaphoresis and vision changes. EKGs were obtained and showed normal sinus rhythm. Troponins were negative at that time. Orthostatic vital signs were negative. At the time of my assessment patients symptoms had resolved. She reports feeling extremely anxious about the new heart failure diagnosis. Started atarax 50 mg PRN for anxiety. She was noted to have a slight JUDI on CMP likely due to over diuresis with the lasix. Lasix now on hold and will reevaluate BUN/Cr in the am. Per cardiology if Cr improves patient is clear for discharge with lasix PRN. Review of Systems Review of Systems: All systems reviewed & are unremarkable except as noted in HPI and below Exam Narrative: AF HR 80 RR 20 SpO2 100 BP 137/87 General: well nourished, well-developed female in no acute respiratory distress who is nontoxic appearing, lying semi recumbent in bed. HEENT: Normocephalic. Atraumatic. Pupils equal round reactive to light. Extraocular movement intact. Sclera clear and anicteric. No facial asymmetry. Chest: Lungs are clear to auscultation bilaterally. No wheezes or crackles. CV: Heart was regular rate and rhythm. S1-S2. No murmurs, gallops, or rubs. Abd: Abdomen was soft. Nontender. Nondistended. Positive bowel sounds. No organomegaly or masses. Ext: No clubbing, cyanosis. 2+ DP pulses bilaterally. trivial lower extre
[2024-01-03 17:03] LABS: Alanine Aminotransferase 50 U/L (6-35); Albumin Level 3.6 g/dL (3.5-5.1); Alkaline Phosphatase 65 U/L (38-126); Anion Gap 3 mmol/L (4-12); Aspartate Amino Transferase 39 U/L (14-36); Bilirubin,Total 0.6 mg/dL (0.2-1.3); Blood Urea Nitrogen 11 mg/dL (7-17); Calcium 8.8 mg/dL (8.4-10.2); Carbon Dioxide 28 mmol/L (22-30); Chloride 105 mmol/L (98-107); Estimated CRCL calculation 63 ml/min; Estimated Glomerular Filt Rate 46; Glucose 103 mg/dL (65-110); Potassium 3.6 mmol/L (3.4-5.0); Sodium 136 mmol/L (137-145)
--- NOTE | 2024-01-03 18:52 | PC.NURSE ---
Pt had episode of chest tightness/diaphoresis/light headedness prior to shift change this AM. Trops and EKG negative. This AM pt had zofran for nausea/chest tightness approx 0945. Orthos negative. This RN called MD and cardio by. Cardio states possible over diuresed. Will continue to monitor.
[2024-01-04] VITALS: PULSE 61
[2024-01-04 04:00] VITALS: PULSE 50
[2024-01-04 05:15] VITALS: BP 97/52; PULSE 55; RESP 20; TEMP 35.9; O2SAT 99
[2024-01-04 05:59] LABS: Basophils Absolute Auto 0.1 K/mm3 (0.0-0.1); Eosinophils Absolute Auto 0.2 K/mm3 (0-0.3); Eosinophils Percent Auto 3.3 % (0-4.4); Hematocrit 35.8 % (37.0-47.0); Hemoglobin 11.2 g/dL (12.0-15.0); Immature Granulocyte Absolute 0.02 K/mm3 (0.00-0.031); Immature Granulocyte Percent A 0.4 % (0-0.5); Lymphocytes Absolute Auto 1.67 K/mm3 (0.9-3.2); Lymphocytes Percent Auto 31.9 % (18.3-44.2); Mean Corpuscular HGB Conc 31.3 g/dl (32-36); Mean Corpuscular Hemoglobin 27.5 pg (26-34); Mean Corpuscular Volume 87.7 fl (80-100); Mean Platelet Volume 9.6 fl (7.4-10.4); Monocytes Absolute Auto 0.4 K/mm3 (0.1-0.6); Monocytes Percent Auto 7.8 % (2.6-8.5); Neutrophils Absolute Auto 2.9 K/mm3 (1.3-6.7); Neutrophils Percent Auto 55.6 % (45.5-73.1); Platelet Count Result 216 k/mm3 (150-375); Red Blood Count 4.08 M/mm3 (4.2-5.4); Red Cell Distribution Width 14.2 % (11.5-14.5); White Blood Count 5.2 K/mm3 (4.5-10.0)
[2024-01-04 06:09] LABS: Alanine Aminotransferase 47 U/L (6-35); Albumin Level 3.5 g/dL (3.5-5.1); Alkaline Phosphatase 63 U/L (38-126); Anion Gap 5 mmol/L (4-12); Aspartate Amino Transferase 43 U/L (14-36); Bilirubin,Total 0.7 mg/dL (0.2-1.3); Blood Urea Nitrogen 12 mg/dL (7-17); Calcium 9.1 mg/dL (8.4-10.2); Carbon Dioxide 29 mmol/L (22-30); Chloride 106 mmol/L (98-107); Estimated CRCL calculation 64 ml/min; Estimated Glomerular Filt Rate 46; Glucose 95 mg/dL (65-110); Potassium 3.6 mmol/L (3.4-5.0); Sodium 140 mmol/L (137-145)
[2024-01-04 08:00] VITALS: PULSE 59
[2024-01-04] MEDS: ENOXAPARIN 40 MG/0.4 ML SYRINGE SUB-Q (08:51)
[2024-01-04] MEDS: EMPAGLIFLOZIN 10 MG TABLET PO (08:51)
[2024-01-04] MEDS: IBUPROFEN 600 MG TABLET PO (08:51)
[2024-01-04] MEDS: PANTOPRAZOLE 40 MG TABLET PO (09:07)
[2024-01-04 12:00] VITALS: PULSE 76
--- NOTE | 2024-01-04 13:43 | PM.DS ---
DS: Admitting Diagnosis Discharge Date 01/04/24 Admitting Diagnosis Acute diastolic heart failure Transaminasemia Normocytic anemia Obstructive sleep apnea Acute kidney injury DS: Discharge Diagnosis Discharge Diagnosis (1) Acute diastolic heart failure: Code(s): I50.31 - Acute diastolic (congestive) heart failure Status: Acute (2) Transaminasemia: Code(s): R74.01 - Elevation of levels of liver transaminase levels Status: Acute (3) Normocytic anemia: Code(s): D64.9 - Anemia, unspecified Status: Acute (4) Obstructive sleep apnea: Code(s): G47.33 - Obstructive sleep apnea (adult) (pediatric) Status: Acute (5) JUDI (acute kidney injury): Code(s): N17.9 - Acute kidney failure, unspecified Status: Acute DS: Summary Hospital Course Reason for hospitalization: Acute diastolic heart failure Transaminasemia Normocytic anemia Obstructive sleep apnea Acute kidney injury Hospital Course: 38-year-old female who was recently diagnosed with sleep apnea though she has yet to receive her CPAP machine who presented to the emergency department for evaluation of swelling in her legs and mild shortness of breath.?On arrival she had an elevated BNP and D dimer. Chest x-ray showed mild scarring at the lung apices. Chest CTA was negative for pulmonary embolus but did show mild pulmonary edema and small pleural effusions. She was started on IV lasix at that time. Due to the pulmonary edema, small pleural effusions and elevated BNP there was concern for heart failure. She reports that her brother and mother both had heart failure. Brother was diagnosed in his late 30s. Mother was diagnosed in her 40s. An echo was obtained and revealed an LVEF of 60-65 % and grade III diastolic dysfunction. She was evaluated by cardiology who started her on Jardiance 10 mg daily and lasix 40 mg PO daily. Patient reported sharp chest pain on 01/02. An EKG was obtained and unchanged from prior, troponins were negative and orthostatics were negative. The symptoms then resolved. Patient then developed a mild JUDI likely due to over diuresis. The lasix was stopped and JUDI remains stable. Patient will obtain a CMP outpatient to monitor BUN/Cr levels. Patient given atarax for ongoing anxiety. Per cardiology patient will remain on Jardiance 10 mg daily and lasix 40 mg as needed. Patient discharged home in a stable condition. She is to follow up with cardiology in 4 weeks and her PCP in 1 week. She will obtain a CMP outpatient in 1 week to reevaluate BUN/Cr. Status at Discharge Functional status at discharge: independent ambulation Time Spent with Patient Time attestation: Total time spent providing and/or coordinating discharge services: Time spent: Greater than 30 minutes Exam Narrative: AF HR 55 RR 20 SpO2 99 BP 119/72 General: well nourished, well-developed female in no acute respiratory distress who is nontoxic appearing, lying semi recumbent in bed. HEENT: Normocephalic. Atraumatic. Pupils equal round reactive to light. Extraocular movement intact. Sclera clear and anicteric. No facial asymmetry. Chest: Lungs are clear to auscultation bilaterally. No wheezes or crackles. CV: Heart was regular rate and rhythm. S1-S2. No murmurs, gallops, or rubs. Abd: Abdomen was soft. Nontender. Nondistended. Positive bowel sounds. No organomegaly or masses. Ext: No edema, clubbing, cyanosis. 2+ DP pulses bilaterally. Neuro: Patient is alert and oriented x4. Speech is clear. Psych: Normal mood and affect. Patient is pleasant and cooperative. Skin: Warm and dry. No rashes noted. DS: Data Data Completed and Pending Completed studies during hospitalization: Chest XR Venous doppler Chest CTA Chest XR Labs on day of discharge: Labs from last 24 hours 01/04/24 01/03/24 05:31 16:27 WBC 5.2 RBC 4.08 L Hgb 11.2 L Hct 35.8 L MCV 87.7 MCH 27.5 MCHC 31.3 L RDW 14.2 Plt Count 216 MPV 9.6 Immature
[2024-01-04 14:24] VITALS: BP 119/72
== END 2024-01-04 14:55 | disposition home or self-care (01) | DRG 292 ==
LOC: ANHED 11:20 → ANH3MEDSUR 15:14
PROVIDERS: Internal Medicine; Physician Assistant; Student in an Organized Health Care Education/Training Program; Admitting Provider Family Medicine; Emergency Provider Student in an Organized Health Care Education/Training Program; Visit Provider General Practice
DX: I50.31 Acute diastolic (congestive) heart failure (principal); N17.9 Acute kidney failure, unspecified; D64.9 Anemia, unspecified; G47.33 Obstructive sleep apnea (adult) (pediatric); R07.89 Other chest pain; R74.01 Elevation of levels of liver transaminase levels; Z87.891 Personal history of nicotine dependence
CPT/HCPCS: 36415; 71045; 71046; 71275; 80053; 80074; 81025; 82550; 82607; 82728; 82746; 82948; 83540; 83550; 83690; 83735; 83880; 84100; 84443; 84484; 85025; 85027; 85380; 85610; 85730; 93005; 93306; 93970; 96372; 96374; 96376; 99285; A9270; G0378; J1650; J1940; J2405; Q9967

== ENCOUNTER 2024-05-28 09:51 | Outpatient (CLI) | payer OTHER, SELFPAY ==
--- NOTE | ~2024-05-28 | XR_ITS ---
XR chest 2V Ordering provider: Breonna Han History: 38 years Female with . DYSPNEA. SOB, SYNCOPAL, FLUCTUATION IN BP HR . Comparison: January 03, 2024 FINDINGS: MEDIASTINUM: The cardiac silhouette is not enlarged. Device is projected over the left hemithorax. LUNGS: No infiltrates, effusions or pneumothorax. OTHER: No free air under the diaphragm. IMPRESSION: No acute cardiopulmonary pathology. Reviewed, dictated and finalized at location A.
[2024-05-28 11:14] LABS: SARS-CoV-2 RNA PCR Negative (Negative)
== END 2024-05-28 09:52 | disposition home or self-care (01) ==
PROVIDERS: PCP Nurse Practitioner Family
DX: R06.00 Dyspnea, unspecified (principal)
CPT/HCPCS: 71046; 87635

== ENCOUNTER 2025-05-25 12:39 | Emergency (ER) | payer OTHER, SELFPAY ==
--- NOTE | ~2025-05-25 | XR_ITS ---
EXAMINATION: XR chest 2V 05/25/2025 13:41 INDICATION: Shortness of breath and chest pain PROCEDURE: 2 view chest COMPARISON: 05/28/2024 FINDINGS: The lungs are clear. The cardiomediastinal silhouette is within normal limits. There are no pleural effusions. There is no pneumothorax suspected. IMPRESSION: 1: NO ACUTE CARDIOPULMONARY DISEASE. Reviewed, dictated and finalized at location O.
--- NOTE | ~2025-05-25 | CT_ITS ---
CT HEAD NON-CONTRAST Clinical History: fuzzy, lightheadedness Comparison: 12/06/2020 Technique: Unenhanced axial images skull base to vertex Coronal, sagittal reformats CT images acquired with automatic exposure control for dose reduction DLP: 605 mGy-cm Findings: Sulci, ventricles: Unremarkable. No intracerebral hemorrhage. No evidence acute territorial infarct. No mass effect, midline shift. Bony calvarium intact. Visualized paranasal sinuses: Clear. Mastoid air cells: Clear. IMPRESSION: 1. No acute intracranial findings. Reviewed, dictated and finalized at location R.
[2025-05-25 12:59] VITALS: BP 122/81; PULSE 86; RESP 20; TEMP 36.6; O2SAT 100
--- OUTSIDE RECORDS SUMMARY | 2025-05-25 13:06 | XMS_ITS | Patient Health Record ---
Author Organization [facility] Address [address] [facility] [address] [place] [address] Care Team Providers Care Medicinal Chemist Name Role Phone Reese Garcia Unavailable [phone] Reason For Referral No Information Medications Medication SIG (Take, Route, Frequency, Duration) Notes Start Date End Date Status ALPRAZolam 0.5 MG Tablet Oral 03/05/2019 Active Trintellix 5 MG Tablet Oral 03/05/2019 Active Amoxicillin-Pot Clavulanate 875-125 MG Tablet Oral 03/05/2019 Active HYDROcodone-Acetaminophen 5-325 MG Tablet Oral 03/05/2019 Active Prazosin HCl 1 MG Capsule Oral 03/05/2019 Active metroNIDAZOLE 0.75 % Gel Vaginal 03/05/2019 Active metroNIDAZOLE 500 MG Tablet Oral 03/05/2019 Active Immunizations Vaccine Route Administration Date Status Comme nts Influenza virus vaccine, quadrivalent (IIV4), split virus, 0.25 mL dosage Unknown 08/03/2018 Administered Social History Social History Additional Details Category Social Info Options Details Migrated Social History Migrated Social History Alcohol Intake: Occasional 07/06/2020,Tobacco Years: Former smoker 07/06/2020,Smoking Status: 4 07/06/2020 Plan Of Treatment No Information Insurance Providers Payer Name Payer Address Payer Phone Subscriber Number Group Number Insured Name Patient Relationship to Insured Coverage Start Date Coverage End Date For Life - Medicare Supplement [address] [place] [address] [id number] December Self - patient is the insured
--- OUTSIDE RECORDS SUMMARY | 2025-05-25 13:06 | XMS_ITS | Clinical Summary ---
Author Organization [facility] Administrative Offices Address [address] [place] [address] Care Team Providers Care Water Proofer Name Role Phone Michael Borjas MD Primary Care Provider [phone] Allergies No known active allergies Medications metoclopramide HCl (REGLAN) 10 mg tablet Take 1 Tablet (10 mg) by mouth 1 time daily as needed for Nausea/Emesis or Other (See Comment) (Headache associated with nausea). 20 Tablet 11 6 Active naproxen (NAPROSYN) 500 mg tablet Take 1 Tablet (500 mg) by mouth 1 time daily as needed for Pain, Moderate. 12 Tablet 11 6 Active rizatriptan (MAXALT) 10 mg Tablet may repeat in 2 hours; max dose 30mg in 24 hours. 9 Tablet 5 7 Active nortriptyline (PAMELOR) 75 mg capsule TAKE 1 CAPSULE(75 MG) BY MOUTH DAILY AT BEDTIME 30 Capsule 2 8 Active Active Problems No known active problems Social History Tobacco Use Types Packs/Day Years Used Date Smoking Tobacco: Never Smokeless Tobacco: Never Comments Unknown Sex and Gender Information Value Date Recorded Sex Assigned at Not on file Legal Sex Female 7:52 AM CDT Gender Identity Not on file Sexual Orientation Not on file Last Filed Vital Signs Vital Sign Reading Time Taken Comments Blood Pressure 122/70 12/25/2017 10:30 AM CDT Pulse 65 10/13/2016 9:50 AM TIRE RECAPPER Temperature - - Respiratory Rate - - Oxygen Saturation - - Inhaled Oxygen Concentration - - Weight 62.6 kg (138 lb) 12/25/2017 10:30 AM CDT Height 167.6 cm (5' 6) 12/25/2017 10:30 AM CDT Body Mass Index 22.27 12/25/2017 10:30 AM CDT Plan of Treatment Health Maintenance Due Date Last Done Comments DTAP/TDAP/TD VACCINES (1 - Tdap) 2005 HEPATITIS B VACCINES (1 of 3 - 19+ 3-dose series) 10/2004 HPV/Cotest (21-29) 2007 HPV VACCINES (1 - 3-dose SCDM series) 2013 CERVICAL CANCER SCREENING 2016 HPV/Cotest (30-65) 2016 PAP SMEAR 2016 INFLUENZA VACCINE (#1) 2025 Care Teams Water Proofer Relationship Specialty Start Date End Date Michael Borjas MD PCP - General Family Practice 10/12/17
--- OUTSIDE RECORDS SUMMARY | 2025-05-25 13:06 | XMS_ITS | Clinical Summary ---
Author Organization [facility] Care Team Providers Care Emergency Management Director Name Role Phone Unavailable Primary Care Provider Unavailabl e Social History Tobacco Use Types Packs/Day Years Used Date Smoking Tobacco: Never Assessed Comments Unknown Sex and Gender Information Value Date Recorded Sex Assigned at Not on file Legal Sex Female 1:12 PM CDT Gender Identity Not on file Sexual Orientation Not on file Plan of Treatment Health Maintenance Due Date Last Done Comments Hepatitis C Virus (HCV) Screening 1986 Hepatitis B Immunization (1 of 3 - 19+ 3-dose series) 2005 Pap Smear 2007 Human Papillomavirus (HPV) Immunization (1 - 3-dose SCDM series) 2013 Cervical Cancer Screening (CCS) 2016 HPV/Cotest 2016 SARS-COV-2 Immunization ( season) 2024 11/09/2020 Influenza Immunization (#1) 2025 Respiratory Syncytial Virus (RSV) Immunization (Adult) (1 - 1-dose 75+ series) 2061 DTaP/Tdap/Td Immunization Discontinued 02/11/2018 TdaP Immunization Completed 02/11/2018 Meningococcal Immunization (ACWY) Aged Out No longer eligible based on patient's age to complete this topic Pneumococcal Immunization Combined Aged Out No longer eligible based on patient's age to complete this topic Rotavirus Immunization Aged Out No lo nger eligible based on patient's age to complete this topic
--- NOTE | 2025-05-25 13:13 | ECG_ITS ---
Test Date: 2025-05-25 13:17:57 Measurements Intervals [employer] Rate: 82 P: 80 [place]: 121 QRS: 70 QRSD: 86 T: 49 QT: 378 QTc: 442 Interpretive Statements SINUS RHYTHM No previous ECG available for comparison Electronically Signed On 05-25-2025 14:45:20 CDT by Hector Guzmán M.D.
--- NOTE | 2025-05-25 13:15 | ED_ITS ---
HPI - Dizziness General Chief Complaint: Dizziness <ALBER Escobar Last Filed: 05/25/25 13:22> Stated Complaint: Head fuzzy,dizzy, CP, SHOB-Hx CHF <Belinda Cerna PA-C - Last Filed: 05/25/25 13:22> Time Seen by Provider: 05/25/25 13:15 <ALBER Escobar Last Filed: 05/25/25 13:22> Focused HPI: Patient is a 39 y/o female who presents to the ED with c/o fuzziness, CP. Patient reports she has been lightheaded/dizzy the past 2 weeks. Has been feeling fuzzy and not clear headed for the past 1 week. States today she had a panic attack about the fuzziness, and decided to come to the ED. Reported having episode of CP 2 weeks ago but denied having any pain today. Did report SOB today, denies trouble breathing currently. Denies recent cough or cold sx's, fever, BLE pain/swelling. Denies focal numbness or weakness, slurred speech. Hx of CHF diagnosed in 2023, on jardiance and prn lasix. GENERAL: Mildly anxious-appearing, well-nourished, and in no acute distress. HEAD: Normocephalic, atraumatic. CHEST: Clear to auscultation. ?No respiratory distress. No focal lung sounds. HEART: Regular rate and rhythm.? NEURO: ?Alert and oriented x3. Patient screened in triage and initial orders placed.? ?Additional care and disposition to be based upon?diagnostic testing and treatment. <ALBER Escobar Last Filed: 05/25/25 13:22> Source: patient <ALBER Escobar Last Filed: 05/25/25 13:22> Mode of arrival: ambulatory <ALBER Escobar Last Filed: 05/25/25 13:22> Limitations: no limitations <ALBER Escobar Last Filed: 05/25/25 13:22> Related Data Home Medications: Home Medications ?Medication ?Instructions ?Recorded ?Confirmed ?Last Taken ?Type ergocalciferol (vitamin D2) 1,250 1,250 mcg PO WEEKLY 01/01/24 01/01/24 Unknown History mcg (50,000 unit) capsule ibuprofen 600 mg tablet 600 mg PO BID 01/01/2412/31 Unknown History omeprazole 40 mg capsule,delayed 40 mg PO DAILY 01/01/24 Unknown History release <Belinda Cerna PA-C - Last Filed: 05/25/25 13:22> Allergies/Adverse Reactions: Allergies Allergy/AdvReac Type Severity Reaction Status Date / Time Penicillins AdvReac Rash Verified 05/25/25 12:41 <Belinda Cerna PA-C - Last Filed: 05/25/25 13:22> Review of Systems 2 Review of Systems: All systems reviewed & are unremarkable except as noted in HPI and below <Parris Radford PA-C - Last Filed: 05/25/25 20:30> [facility] Past Medical History Medical History: Medical History Obstructive sleep apnea <Belinda Cerna PA-C - Last Filed: 05/25/25 13:22> Surgical History Surgical History: Surgical History History of tonsillectomy <Belinda Cerna PA-C - Last Filed: 05/25/25 13:22> Family History Family History: Family History Mother CHF (congestive heart failure) Hypothyroidism Renal failure Sibling CHF (congestive heart failure) Father Diabetes mellitus <Belinda Cerna PA-C - Last Filed: 05/25/25 13:22> Social History Social History: Social History Social History: Surrogate medical decision maker: Leo Huynh, spouse. Code status: Full code. Smoking packs per day: 0.15 Smoking cigarettes per day: 3.0 Years smoked: 6 Smoking pack-years: 0.90 Smoking status: Former smoker Tobacco type: cigarettes and e-cigarettes/vaping Smoking end date: 09/12/21 Alcohol intake: current Drinks per week: 2 Substance use: never Do You Feel Safe in your Home?: Yes Lack of Transportation: No Lack of Food: Never True Current Housing: I Have Housing Concerned About Future Housing: Decline to Answer Difficulty Paying Gas/Electric Bills: Decline to Answer Difficulty Paying for Meds: Decline to Answer Currently Unemployed: Decline to Answer Education: High School Diploma/GED Difficulty w/ Childcare or Family Care: No Additional living arrangements comments: Lives with and son and daughter in [place]. Additional occupation/education comments: Homemaker. Spiritual care concerns: No <Belinda Cerna PA-C - Last Filed: 05/25/25 13:22> Exam 2 Narrative: GENERAL: Well-appearing, well-nourished, and in no acute distress. HEAD: Normocephalic, atraumatic. EYES: PERRLA and EOMI. ENT: Nares clear, no rhinorrhea or epistaxis. Mucous membranes moist. Oropharynx without tonsillar hypertrophy exudate or other lesions. Bilateral TMs pearly forbes non-bulging NECK: Supple. No adenopathy or masses. CHEST: Clear to auscultation. No respiratory distress. No wheezes rales or rhonchi HEART: Regular rate and rhythm. No murmur heard. Normal peripheral pulses. EXTREMITIES: Normal range of motion. No edema. SKIN: Warm, dry, no rash. NEURO: No focal deficits. Alert and oriented x3. Cranial nerves 2-12 grossly intact PSYCH: Normal mood and affect <Parris Radford PA-C - Last Filed: 05/25/25 20:30> Course Vital Signs Vital signs: Vital Signs Temperature 97.9 F 05/25/25 12:59 Pulse Rate 86 05/25/25 12:59 Respiratory Rate 20 05/25/25 12:59 Blood Pressure 122/81 05/25/25 12:59 Pulse Oximetry 100 05/25/25 12:59 Oxygen Delivery Room Air 05/25/25 12:59 Temperature 97.9 F 05/25/25 12:59 Pulse Rate 86 05/25/25 12:59 Respiratory Rate 20 05/25/25 12:59 Blood Pressure 122/81 05/25/25 12:59 Pulse Oximetry 100 05/25/25 12:59 Oxygen Delivery Room Air 05/25/25 12:59 <Belinda Cerna PA-C - Last Filed: 05/25/25 13:22> Vital Signs Temperature 97.9 F 05/25/25 12:59 Pulse Rate 86 05/25/25 12:59 Respiratory Rate 20 05/25/25 12:59 Blood Pressure 122/81 05/25/25 12:59 Pulse Oximetry 100 05/25/25 12:59 Oxygen Delivery Room Air 05/25/25 12:59 Temperature 97.9 F 05/25/25 12:59 Pulse Rate 86 05/25/25 12:59 Respiratory Rate 20 05/25/25 12:59 Blood Pressure 122/81 05/25/25 12:59 Pulse Oximetry 100 05/25/25 12:59 Oxygen Delivery Room Air 05/25/25 12:59 <ALBER Browning Last Filed: 05/25/25 20:30> MDM - Dizziness MDM Narrative Medical decision making narrative: MSE by NADINE in triage. <ALBER Escobar Last Filed: 05/25/25 13:22> MSE by NADINE in triage. Patient presents to the emergency department for lightheadedness, intermittent chest pains. She is afebrile and nontoxic appearing. Her vitals are stable. Cbc without leukocytosis. Metabolic panel without concerning findings. TSH is normal. Urine with red blood cells, likely contamination. Patient does not have any urinary symptoms. This will be sent for culture. test is negative. Chest x-ray without acute cardiopulmonary abnormality. EKG shows normal sinus rhythm. CT brain without acute findings. Patient updated on her workup and agrees with plan of care. She is to follow up with primary provider. She was given warnings to return to the ER <ALBER Browning Last Filed: 05/25/25 20:30> Differential Diagnosis Differential diagnosis: Likely adverse reaction to drug, benign paroxysmal positional vertigo, orthostatic hypotension and other (anxiety, thyroid dysfunction, electrolyte derangement, dehydration) <ALBER Browning Last Filed: 05/25/25 20:30> Lab Data Attestation: I reviewed the patient's lab results. <ALBER Browning Filed: 05/25/25 20:30> Result diagrams: 05/25/25 13:29 05/25/25 13:29 <Belinda Cerna PA-C - Last Filed: 05/25/25 13:22> Labs: Lab Results 05/25/25 05/25/25 05/25/25 Range/Units 13:07 13:29 13:29 WBC 9.8 (4.5-10.0) K/mm3 RBC 4.85 (4.2-5.4) M/mm3 Hgb 13.5 (12.0-15.0) g/dL Hct 42.0 (37.0-47.0) % MCV 86.6 (80-100) fl MCH 27.8 (26-34) pg MCHC 32.1 (32-36) g/dl RDW 13.1 (11.5-14.5) % Plt Count 247 (150-375) k/mm3 MPV 10.1 (7.4-10.4) fl Immature Gran % (Auto) 0.4 (0-0.5) % Neut % (Auto) 75.4 H (45.5-73.1) % Lymph % (Auto) 16.8 L (18.3-44.2) % [place] % (Auto) 6.2 (2.6-8.5) % Eos % (Auto) 0.7 (0-4.4) % Baso % (Auto) 0.5 (0.2-1.2) % Lymph # (Auto) 1.64 (0.9-3.2) K/mm3 [place] # (Auto) 0.6 (0.1-0.6) K/mm3 Eos # (Auto) 0.1 (0-0.3) K/mm3 Baso # (Auto) 0.1 (0.0-0.1) K/mm3 Abs Immat Gran (auto) 0.04 H (0.00-0.031) K/mm3 Absolute Neuts (auto) 7.4 H (1.3-6.7) K/mm3 Absolute Nucleated RBC 0.000 (0.0-0.012) K/mm3 Nucleated RBC % 0.0 (0.0-0.2) % PT 13.7 Cancelled (11.1-14.7) Seconds INR 1.0 APTT (22.3-36.8) Seconds D-Dimer (<0.48) ug/mL Sodium (137-145) mmol/L Potassium (3.4-5.0) mmol/L Chloride (98-107) mmol/L Carbon Dioxide (22-30) mmol/L Anion Gap (4-12) mmol/L BUN (7-17) mg/dL Creatinine (0.7-1.0) mg/dL Estim Creat Clear Calc ml/min Estimated GFR (59 - ) Glucose (65-110) mg/dL POC Capillary Glucose 87 (65-105) mg/dl Calcium (8.4-10.2) mg/dL Magnesium (1.6-2.3) mg/dL Total Bilirubin (0.2-1.3) mg/dL AST (14-36) U/L ALT (6-35) U/L Alkaline Phosphatase (38-126) U/L Troponin I (0.000-0.034) ng/mL NT-Pro-B Natriuret Pep (19.9-100) pg/mL Total Protein (6.3-8.2) g/dL Albumin (3.5-5.1) g/dL TSH (Reflex) (0.465-4.68) uIU/mL Urine Color (Yellow) Urine Appearance (Clear) Urine pH (5.0-9.0) Ur Specific [place] (1.001-1.035) Urine Protein (Negative) mg/dL Urine Glucose (UA) (Negative) mg/dL Urine Ketones (Negative) mg/dL Ur Blood (Man) (Negative) Urine Nitrate (Negative) Urine Bilirubin (Negative) Urine Urobilinogen (<2.0) mg/dL Add Ur Microanalysis Leukocyte Esterase Rfl (Negative) JARON/UL Urine RBC (0-2) /hpf Urine WBC (0-3) /hpf Ur Squamous Epith Cells (Few) /hpf Urine Bacteria /hpf Urine Casts POC Urine HCG, Qual (Negative) 05/25/25 05/25/25 05/25/25 Range/Units 13:29 13:34 19:22 WBC (4.5-10.0) K/mm3 RBC (4.2-5.4) M/mm3 Hgb (12.0-15.0) g/dL Hct (37.0-47.0) % MCV (80-100) fl MCH (26-34) pg MCHC (32-36) g/dl RDW (11.5-14.5) % Plt Count (150-375) k/mm3 MPV (7.4-10.4) fl Immature Gran % (Auto) (0-0.5) % Neut % (Auto) (45.5-73.1) % Lymph % (Auto) (18.3-44.2) % [place] % (Auto) (2.6-8.5) % Eos % (Auto) (0-4.4) % Baso % (Auto) (0.2-1.2) % Lymph # (Auto) (0.9-3.2) K/mm3 [place] # (Auto) (0.1-0.6) K/mm3 Eos # (Auto) (0-0.3) K/mm3 Baso # (Auto) (0.0-0.1) K/mm3 Abs Immat Gran (auto) (0.00-0.031) K/mm3 Absolute Neuts (auto) (1.3-6.7) K/mm3 Absolute Nucleated RBC (0.0-0.012) K/mm3 Nucleated RBC % (0.0-0.2) % PT (11.1-14.7) Seconds INR Cancelled APTT 24.7 (22.3-36.8) Seconds D-Dimer < 0.27 (<0.48) ug/mL Sodium 136 L (137-145) mmol/L Potassium 3.8 (3.4-5.0) mmol/L Chloride 103 (98-107) mmol/L Carbon Dioxide 23 (22-30) mmol/L Anion Gap 10 (4-12) mmol/L BUN 9 (7-17) mg/dL Creatinine 0.95 (0.7-1.0) mg/dL Estim Creat Clear Calc 66 ml/min Estimated GFR > 60 (59 - ) Glucose 88 (65-110) mg/dL POC Capillary Glucose (65-105) mg/dl Calcium 9.2 (8.4-10.2) mg/dL Magnesium 2.1 (1.6-2.3) mg/dL Total Bilirubin 0.7 (0.2-1.3) mg/dL AST 36 (14-36) U/L ALT 26 (6-35) U/L Alkaline Phosphatase 75 (38-126) U/L Troponin I < 0.012 (0.000-0.034) ng/mL NT-Pro-B Natriuret Pep 273 H (19.9-100) pg/mL Total Protein 7.2 (6.3-8.2) g/dL Albumin 4.5 (3.5-5.1) g/dL TSH (Reflex) 3.900 (0.465-4.68) uIU/mL Urine Color Yellow (Yellow) Urine Appearance Clear (Clear) Urine pH 6.0 (5.0-9.0) Ur Specific [place] 1.003 (1.001-1.035) Urine Protein Negative (Negative) mg/dL Urine Glucose (UA) 1+ H (Negative) mg/dL Urine Ketones Negative (Negative) mg/dL Ur Blood (Man) Negative (Negative) Urine Nitrate Negative (Negative) Urine Bilirubin Negative (Negative) Urine Urobilinogen 0.2 (<2.0) mg/dL Add Ur Microanalysis Reviewed Leukocyte Esterase Rfl 1+ H (Negative) JARON/UL Urine RBC 0-2 (0-2) /hpf Urine WBC 6-10 H (0-3) /hpf Ur Squamous Epith Cells None seen (Few) /hpf Urine Bacteria None seen /hpf Urine Casts 0-2 POC Urine HCG, Qual Negative (Negative) <Belinda Cerna PA-C - Last Filed: 05/25/25 13:22> Lab Results 05/25/25 05/25/25 05/25/25 Range/Units 13:07 13:29 13:29 WBC 9.8 (4.5-10.0) K/mm3 RBC 4.85 (4.2-5.4) M/mm3 Hgb 13.5 (12.0-15.0) g/dL Hct 42.0 (37.0-47.0) % MCV 86.6 (80-100) fl MCH 27.8 (26-34) pg MCHC 32.1 (32-36) g/dl RDW 13.1 (11.5-14.5) % Plt Count 247 (150-375) k/mm3 MPV 10.1 (7.4-10.4) fl Immature Gran % (Auto) 0.4 (0-0.5) % Neut % (Auto) 75.4 H (45.5-73.1) % Lymph % (Auto) 16.8 L (18.3-44.2) % [place] % (Auto) 6.2 (2.6-8.5) % Eos % (Auto) 0.7 (0-4.4) % Baso % (Auto) 0.5 (0.2-1.2) % Lymph # (Auto) 1.64 (0.9-3.2) K/mm3 [place] # (Auto) 0.6 (0.1-0.6) K/mm3 Eos # (Auto) 0.1 (0-0.3) K/mm3 Baso # (Auto) 0.1 (0.0-0.1) K/mm3 Abs Immat Gran (auto) 0.04 H (0.00-0.031) K/mm3 Absolute Neuts (auto) 7.4 H (1.3-6.7) K/mm3 Absolute Nucleated RBC 0.000 (0.0-0.012) K/mm3 Nucleated RBC % 0.0 (0.0-0.2) % PT 13.7 Cancelled (11.1-14.7) Seconds INR 1.0 APTT (22.3-36.8) Seconds D-Dimer (<0.48) ug/mL Sodium (137-145) mmol/L Potassium (3.4-5.0) mmol/L Chloride (98-107) mmol/L Carbon Dioxide (22-30) mmol/L Anion Gap (4-12) mmol/L BUN (7-17) mg/dL Creatinine (0.7-1.0) mg/dL Estim Creat Clear Calc ml/min Estimated GFR (59 - ) Glucose (65-110) mg/dL POC Capillary Glucose 87 (65-105) mg/dl Calcium (8.4-10.2) mg/dL Magnesium (1.6-2.3) mg/dL Total Bilirubin (0.2-1.3) mg/dL AST (14-36) U/L ALT (6-35) U/L Alkaline Phosphatase (38-126) U/L Troponin I (0.000-0.034) ng/mL NT-Pro-B Natriuret Pep (19.9-100) pg/mL Total Protein (6.3-8.2) g/dL Albumin (3.5-5.1) g/dL TSH (Reflex) (0.465-4.68) uIU/mL Urine Color (Yellow) Urine Appearance (Clear) Urine pH (5.0-9.0) Ur Specific [place] (1.001-1.035) Urine Protein (Negative) mg/dL Urine Glucose (UA) (Negative) mg/dL Urine Ketones (Negative) mg/dL Ur Blood (Man) (Negative) Urine Nitrate (Negative) Urine Bilirubin (Negative) Urine Urobilinogen (<2.0) mg/dL Add Ur Microanalysis Leukocyte Esterase Rfl (Negative) JARON/UL Urine RBC (0-2) /hpf Urine WBC (0-3) /hpf Ur Squamous Epith Cells (Few) /hpf Urine Bacteria /hpf Urine Casts POC Urine HCG, Qual (Negative) 05/25/25 05/25/25 05/25/25 Range/Units 13:29 13:34 19:22 WBC (4.5-10.0) K/mm3 RBC (4.2-5.4) M/mm3 Hgb (12.0-15.0) g/dL Hct (37.0-47.0) % MCV (80-100) fl MCH (26-34) pg MCHC (32-36) g/dl RDW (11.5-14.5) % Plt Count (150-375) k/mm3 MPV (7.4-10.4) fl Immature Gran % (Auto) (0-0.5) % Neut % (Auto) (45.5-73.1) % Lymph % (Auto) (18.3-44.2) % [place] % (Auto) (2.6-8.5) % Eos % (Auto) (0-4.4) % Baso % (Auto) (0.2-1.2) % Lymph # (Auto) (0.9-3.2) K/mm3 [place] # (Auto) (0.1-0.6) K/mm3 Eos # (Auto) (0-0.3) K/mm3 Baso # (Auto) (0.0-0.1) K/mm3 Abs Immat Gran (auto) (0.00-0.031) K/mm3 Absolute Neuts (auto) (1.3-6.7) K/mm3 Absolute Nucleated RBC (0.0-0.012) K/mm3 Nucleated RBC % (0.0-0.2) % PT (11.1-14.7) Seconds INR Cancelled APTT 24.7 (22.3-36.8) Seconds D-Dimer < 0.27 (<0.48) ug/mL Sodium 136 L (137-145) mmol/L Potassium 3.8 (3.4-5.0) mmol/L Chloride 103 (98-107) mmol/L Carbon Dioxide 23 (22-30) mmol/L Anion Gap 10 (4-12) mmol/L BUN 9 (7-17) mg/dL Creatinine 0.95 (0.7-1.0) mg/dL Estim Creat Clear Calc 66 ml/min Estimated GFR > 60 (59 - ) Glucose 88 (65-110) mg/dL POC Capillary Glucose (65-105) mg/dl Calcium 9.2 (8.4-10.2) mg/dL Magnesium 2.1 (1.6-2.3) mg/dL Total Bilirubin 0.7 (0.2-1.3) mg/dL AST 36 (14-36) U/L ALT 26 (6-35) U/L Alkaline Phosphatase 75 (38-126) U/L Troponin I < 0.012 (0.000-0.034) ng/mL NT-Pro-B Natriuret Pep 273 H (19.9-100) pg/mL Total Protein 7.2 (6.3-8.2) g/dL Albumin 4.5 (3.5-5.1) g/dL TSH (Reflex) 3.900 (0.465-4.68) uIU/mL Urine Color Yellow (Yellow) Urine Appearance Clear (Clear) Urine pH 6.0 (5.0-9.0) Ur Specific [place] 1.003 (1.001-1.035) Urine Protein Negative (Negative) mg/dL Urine Glucose (UA) 1+ H (Negative) mg/dL Urine Ketones Negative (Negative) mg/dL Ur Blood (Man) Negative (Negative) Urine Nitrate Negative (Negative) Urine Bilirubin Negative (Negative) Urine Urobilinogen 0.2 (<2.0) mg/dL Add Ur Microanalysis Reviewed Leukocyte Esterase Rfl 1+ H (Negative) JARON/UL Urine RBC 0-2 (0-2) /hpf Urine WBC 6-10 H (0-3) /hpf Ur Squamous Epith Cells None seen (Few) /hpf Urine Bacteria None seen /hpf Urine Casts 0-2 POC Urine HCG, Qual Negative (Negative) <Parris Radford PA-C - Last Filed: 05/25/25 20:30> Imaging Data Radiologist's impression: ITS Impressions Head CT 05/25/25 13:38 IMPRESSION: 1. No acute intracranial findings. Chest X-Ray 05/25/25 13:43 IMPRESSION: 1: NO ACUTE CARDIOPULMONARY DISEASE. <ALBER Browning Last Filed: 05/25/25 20:30> ECG Data EKG #1: ECG completion date: 05/25/25 <ALBER Browning Last Filed: 05/25/25 20:30> EKG Interpretation: normal rate, sinus rhythm, no ST changes and normal QT <ALBER Browning Last Filed: 05/25/25 20:30> Critical Care Time Critical Care Time Critical Care Time: No <ALBER Browning Last Filed: 05/25/25 20:30> Discharge Plan Discharge Clinical Impression: Lightheadedness <ALBER Escobar Last Filed: 05/25/25 13:22> Patient Disposition: Home <ALBER Escobar Last Filed: 05/25/25 13:22> Condition: Stable <ALBER Escobar Last Filed: 05/25/25 13:22> Instructions: Lightheadedness (ED) <ALBER Escobar Last Filed: 05/25/25 13:22> Additional Instructions: Return to the emergency department if you experience fever, chest pain, shortness of breath, abdominal pain with nausea and vomiting, weakness, numbness, you pass out, or any other symptoms that are concerning to you. Your blood work, EKG and imaging are re-assuring today Follow up with your primary care doctor for further management <Belinda Cerna PA-C - Last Filed: 05/25/25 13:22> Patient Language: Khmer <Belinda Cerna PA-C - Last Filed: 05/25/25 13:22> Prescriptions: No Action omeprazole 40 mg capsule,delayed release(DR/EC) 40 mg PO DAILY ergocalciferol (vitamin D2) 1,250 mcg (50,000 unit) capsule 1,250 mcg PO WEEKLY Rx Instructions: Takes on Sunday ibuprofen 600 mg Tablet 600 mg PO BID Jardiance 10 mg Tablet 10 mg PO DAILY Qty: 30 0RF hydroxyzine HCl 25 mg Tablet 50 mg PO Q6H PRN (Reason: anxiety) Qty: 10 0RF furosemide [Lasix] 40 mg tablet 40 mg PO ONCE PRN (Reason: edema) Qty: 30 0RF Rx Instructions: Take one tablet as needed for lower extremity swelling, weight gain of 3 lbs overnight, or weight gain of 5 lbs in 1 week. <Belinda Cerna PA-C - Last Filed: 05/25/25 13:22> Follow-up/Referrals: Eduin,Charleen Conrad APRN [Non-Staff, Unknown] <Belinda Cerna PA-C - Last Filed: 05/25/25 13:22>
[2025-05-25 13:37] LABS: BEDSIDEPREGUCG Negative (Negative)
[2025-05-25 13:45] LABS: Hematocrit 42.0 % (37.0-47.0); Hemoglobin 13.5 g/dL (12.0-15.0); Immature Granulocyte Percent A 0.4 % (0-0.5); Lymphocytes Absolute Auto 1.64 K/mm3 (0.9-3.2); Mean Corpuscular HGB Conc 32.1 g/dl (32-36); Mean Corpuscular Hemoglobin 27.8 pg (26-34); Mean Corpuscular Volume 86.6 fl (80-100); Nucleated Red Blood Cells Absolute Auto 0.000 K/mm3 (0.0-0.012); Nucleated Red Blood Cells Perc 0.0 % (0.0-0.2); Platelet Count Result 247 k/mm3 (150-375); Red Blood Count 4.85 M/mm3 (4.2-5.4); White Blood Count 9.8 K/mm3 (4.5-10.0)
[2025-05-25 13:57] LABS: Alanine Aminotransferase 26 U/L (6-35); Albumin Level 4.5 g/dL (3.5-5.1); Alkaline Phosphatase 75 U/L (38-126); Anion Gap 10 mmol/L (4-12); Aspartate Amino Transferase 36 U/L (14-36); Bilirubin,Total 0.7 mg/dL (0.2-1.3); Blood Urea Nitrogen 9 mg/dL (7-17); Calcium 9.2 mg/dL (8.4-10.2); Carbon Dioxide 23 mmol/L (22-30); Chloride 103 mmol/L (98-107); Estimated CRCL calculation 66 ml/min; Estimated Glomerular Filt Rate > 60; Glucose 88 mg/dL (65-110); Magnesium 2.1 mg/dL (1.6-2.3); Potassium 3.8 mmol/L (3.4-5.0); Sodium 136 mmol/L (137-145); Total Protein 7.2 g/dL (6.3-8.2)
[2025-05-25 13:58] LABS: Add Urine Microscopic? YES; Appearance Urine Clear (Clear); Glucose Urine UA 1+ mg/dL (Negative); Leukocyte Esterase Ur 1+ LEU/UL (Negative); Need Manual Microscopic Reviewed; Nitrate Urine Negative (Negative); Non Pathogenic Casts 0-2; Specific Grav Ur 1.003 (1.001-1.035)
[2025-05-25 14:01] LABS: INR 1.0; Partial Thromboplastin Time 24.7 Seconds (22.3-36.8); Prothrombin Time 13.7 Seconds (11.1-14.7)
[2025-05-25 14:08] LABS: NT Pro B Type Natriuretic Pept 273 pg/mL (19.9-100); Troponin I < 0.012 ng/mL (0.000-0.034)
--- OUTSIDE RECORDS SUMMARY | 2025-05-25 17:11 | XMS_ITS | Clinical Summary ---
Author Organization [facility] Care Team Providers Care Operator Cavity Pump Name Role Phone Unavailable Primary Care Provider [...]
--- OUTSIDE RECORDS SUMMARY | 2025-05-25 17:11 | XMS_ITS | Clinical Summary ---
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
[2025-05-25] MEDS: SODIUM CHLORIDE 0.9% IV 500 ML 999 ML IV CONT (17:28)
[2025-05-25] MEDS: FAMOTIDINE 20 MG/2 ML VIAL IV PUSH (17:28)
[2025-05-25] MEDS: KETOROLAC 15 MG/ML VIAL (*BKC) IV PUSH (17:28)
[2025-05-25 20:14] LABS: Thyroid Stimulating Hormone Reflex 3.900 uIU/mL (0.465-4.68)
[2025-05-25 20:35] VITALS: BP 129/76; PULSE 84; RESP 16; TEMP 36.8; O2SAT 99
== END 2025-05-25 20:37 | disposition home or self-care (01) ==
PROVIDERS: Emergency Medicine; Physician Assistant; Emergency Provider Physician Assistant
DX: R42 Dizziness and giddiness (principal); Z87.891 Personal history of nicotine dependence; Z79.899 Other long term (current) drug therapy
CPT/HCPCS: 36415; 70450; 71046; 80053; 81001; 81025; 82948; 83735; 83880; 84443; 84484; 85025; 85380; 85610; 85730; 87086; 93005; 96374; 96375; 99284; J1885; J7040